=== PATIENT | female | born 1970 | race Caucasian/White ===

== ENCOUNTER → 2017-11-11 11:24 | Outpatient (CLI) | payer OTHER, SELFPAY ==
--- NOTE | 2017-11-11 11:32 | RAD_ITS ---
STUDY: X-RAY - PELVIS AND BILATERAL HIPS REASON FOR EXAM: Female, 47 years old. Pain. TECHNIQUE: Radiological exam, hip, bilateral, with pelvis when performed; 2 views COMPARISON: None. FINDINGS: There is a non-specific bowel gas pattern. Normal visualized soft tissue structures. Normal bilateral iliac wings, sacroiliac joints and visualized sacrum. Normal bilateral superior and inferior pubic rami. Normal pubic symphysis. Normal bilateral ischial tuberosities. Normal visualized right femoral head. Normal right acetabulum. Normal right hip joint. Normal visualized left femoral head. Normal left acetabulum. Normal left hip joint. RAD/Hips B/L min 2 views w/ Pelvis IMPRESSION: Normal x-ray examination of the pelvis and bilateral hips. Electronically Signed: Abraham Calvillo MD at 8:40 EDT , Service support ,
--- NOTE | 2017-11-11 11:35 | RAD_ITS ---
STUDY: X-RAY - LUMBAR SPINE REASON FOR EXAM: Female, 47 years old. Pain TECHNIQUE: 5 view(s) of the lumbar spine were obtained. COMPARISON: None FINDINGS: Normal lumbar lordosis. There is no substantial scoliosis. There is a normal alignment of the vertebrae. There is multilevel endplate spondylosis of the lumbar vertebrae. There is multi-level degenerative disc disease with multi-level disc space narrowing. Findings most pronounced at L3-L4 and L4-L5. There is no demonstrated fracture. The soft tissue structures are unremarkable. RAD/L/S Spine Min 4 Views IMPRESSION: Degenerative changes of the spine, as detailed above. Electronically Signed: Abraham Calvillo MD at 8:39 EDT , Service support ,
== END ==
PROVIDERS: Visit Provider Anesthesiology
DX: M51.16 Intervertebral disc disorders with radiculopathy, lumbar region (principal); M47.896 Other spondylosis, lumbar region; M25.552 Pain in left hip; M25.551 Pain in right hip
CPT/HCPCS: 72110; 73521

== ENCOUNTER → 2017-12-19 17:45 | Outpatient (CLI) | payer OTHER, SELFPAY ==
--- NOTE | 2017-12-19 18:15 | MRI_ITS ---
STUDY: MRI LUMBAR SPINE WITHOUT CONTRAST REASON FOR EXAM: Female, 47 years old. Radiculopathy and low back pain TECHNIQUE: Standardized fat and water weighted pulse sequences were obtained in the sagittal and axial planes. COMPARISON: None FINDINGS: T12-L1: Normal endplates. Normal disc height, hydration and morphology. Normal bilateral facet joints. Normal central canal and bilateral lateral recesses. Normal bilateral intervertebral neural foramina. Normal lumbar lordosis. There is moderate levo scoliosis. Normal conus medullaris that terminates at T12-L1 L1-2: Normal endplates. Normal disc height, hydration and morphology. Normal bilateral facet joints. Normal central canal and bilateral lateral recesses. Normal bilateral intervertebral neural foramina. L2-3: Normal endplates. Normal disc height, desiccation and minor annular bulge in association with prominent broad-based left paracentral/posterolateral disc extrusion with inferior migration of disc fragment.. Normal bilateral facet joints. Normal central canal. Moderate left lateral recess and subarticular stenosis with mild left neural foraminal encroachment. L3-4: Normal endplates. Normal disc height, desiccation and moderate annular bulge with large broad-based central disc protrusion and small right posterolateral/foraminal disc protrusion. Mild asymmetric thickening of the right ligamentum flavum.. Moderate central canal stenosis. Moderate right lateral recess and neuroforaminal encroachment and mild narrowing on the left. L4-5: Status post right laminotomy. Narrowed disc space with degenerative endplate changes. Desiccation of the disc and mild annular bulge in association with small left posterolateral/foraminal disc protrusion.. Mild facet arthropathy.. Normal central canal. Mild right lateral recess and neural foraminal encroachment with moderate stenosis on the left L5-S1: Normal endplates. Normal disc height, hydration and tiny right paracentral disc protrusion. Normal bilateral facet joints. Normal central canal and bilateral lateral recesses. Normal bilateral intervertebral neural foramina. Normal visualized sacral ala. Normal visualized paraspinous soft tissue structures. MRI/Spine Lumbar (Routine) IMPRESSION: Status post right laminotomy at L4-5. Scoliosis and degenerative changes. Spinal stenosis at L2-3 more severe on the left, L3-4 more severe on the right and L4-5 also more severe on the left. Findings as above Electronically Signed: Shiva Cunningham MD at 19:06 EDT , Service support ,
== END ==
LOC: MRI 17:49
PROVIDERS: Visit Provider Anesthesiology
DX: M54.16 Radiculopathy, lumbar region (principal); M41.86 Other forms of scoliosis, lumbar region; M48.061 Spinal stenosis, lumbar region without neurogenic claudication
CPT/HCPCS: 72148

== ENCOUNTER → 2018-03-31 08:27 | Outpatient (CLI) | payer OTHER, SELFPAY | PROVIDERS: Visit Provider Anesthesiology | PROC: 3E0S3BZ Introduction of Anesthetic Agent into Epidural Space, Percutaneous Approach (ICD-10-PCS; CPT 62282; principal; 2018-03-06 13:40) | DX: Z01.818 Encounter for other preprocedural examination (principal) ==

== ENCOUNTER 2018-05-22 11:07 | Day surgery (SDC) | payer OTHER, SELFPAY ==
[2018-05-22] VITALS (8 sets, daily range): BP systolic 93–143; BP diastolic 64–84; PULSE 62–82; RESP 14–18; TEMP 36.4–37.1; O2SAT 98–100; BMI 33.3
--- NOTE | 2018-05-22 12:00 | RAD_ITS ---
PROCEDURE: Caudal block. DATE OF EXAMINATION: May 22, 2018. INDICATION: Female, 48 years old. Chronic low back pain. FLUOROSCOPY TIME (if supplied): (0:20) minutes/seconds. 3 intraoperative views were obtained. A spinal needle is seen overlying the posterior midportion of the sacrum. RAD/Fluor Guidance for Spine Inj IMPRESSION: Intraoperative imaging provided for caudal block. Electronically Signed: Moise Cabrera MD at 14:54 EDT Tel [phone], Service support ,
[2018-05-22 12:22] LABS: Internal QC Validated? YES +Cl - CLEAR BKGD; Pregnancy, Urine Negative Negative
[2018-05-22] MEDS: Triamcinolone Acetonide 40 MG/ML Vial (12:57)
--- NOTE | 2018-05-22 13:38 | DCINST_ITS ---
- Discharge Diagnoses Current Active Problems: Lower lumbar spine pain and lumbar radiculopathy Reason(s) for Visit for Discharge Instructions: Caudal epidural steroid injection under fluoroscopy guidance and monitor conscious sedation for severe lower back pain You will use the following diet at home:: Regular Your food should be the consistency of: Regular Your liquids should be the consistency of: Regular/Thin Discharge Activity: - - Patient instructed for bed rest for 48 hours with light activity but nothing and restroom Patient instructed for 2 hours recumbency twice daily Evaluation in 2-4 weeks May shower in (days): 1 May resume sexual activity in: No Restrictions Ice area for (Minutes): 1 - Apply ice 20 minutes on 1 hour off 3 times daily for the lower back Weight Bearing Status: Weight bearing as tolerated Additional Activity Instructions:: No heavy lifting. No excessive bending or twisting. Walking 30 minutes followed by rest. Limit standing to 30 minutes. No squatting or kneeling Call your doctor if your incision/area has: Continuous Slow Oozing, Sudden Increased Bleeding, Increased Pain/ Swelling, Increased Redness, Foul Smelling Discharge, Swelling at the incision site Call your doctor if you observe: Fever of 101 or Higher, Coldness, Increased Pain, Numbness or Tingling, Inability to urinate, Inability to have a bowel movement, Using more than one pad per hour, Shortness of breath, Dizziness, Fainting spells, Swelling in the ankles, Chest pain, Prolonged hiccoughing, Increased palpitations (irregular heartbeat), Calf discomfort, Uncontrolled pain Suture Line Care: Avoid Pulling/Pushing, Avoid Pinching/Bending Change Dressing in (Days):: 1 Remove Dressing in (days):: 1 Cleanse incision/area with: Soap & Water Instructions: What Is Osteoarthritis?, Living with Osteoarthritis, Osteoarthritis Medication, Osteoarthritis: Protecting Your Joints, Osteoarthritis: Coping with Pain, Osteoarthritis: Injections or Surgery Additional Instructions: Please allow patient to rest on lower back if has severe flares up of the lower back preventing patient from standing or staying in a sitting position to relieve her flares up Allergies/Adverse Reactions: Allergies No Known Allergies Allergy (Verified 05/22/18 11:32) Medications to take at Discharge Lisinopril [Zestril] 10 mg PO DAILY 01/18/15 traZODone [Desyrel] 100 mg PO QHS 01/18/15 Escitalopram Oxalate [Lexapro] 10 mg PO DAILY 05/13/18 Gabapentin [Neurontin] 300 mg PO TIDCM 05/13/18 Hydroxyzine Pamoate 50 mg PO TID 05/13/18 Lamotrigine [Lamictal] 100 mg PO BID 05/13/18 Meloxicam [Mobic] 7.5 mg PO BID 05/13/18 Primary Care Physician: Care Physician,No Primary [Primary Care Provider] - Test Results: Test results from this visit will be discussed in further detail at your follow- up appointment, if applicable. Please Follow Up With: Kya Hernandez MD
--- NOTE | 2018-05-22 13:40 | PCM.OPRPT ---
Report of Operation Date of Procedure: 05/22/18 Pre-Operative Diagnosis: Lumbar degenerative disc disease and lumbar radiculopathy Post-Operative Diagnosis: Same Surgery/Procedure Performed:: Caudal epidural steroid injection under fluoroscopy guidance and conscious sedation Description of Surgical Findings:: Under sterile conditions. Patient placed in the prone position, pressure points were padded, patient was ready from the nursing and the anesthesia team. After identification of the side and the target area for the block under guided fluoroscopy, the entry site was marked with marking pen. I used Betadine for sterilization of the skin, sterile draping were applied. Using 25-gauge needle to infiltrate the skin with local anesthesia using preservative-free lidocaine 0.5% injected 2.5 mL at site of entry. Using guided fluoroscopy, accessed the the caudal/sacral epidural space using 22-gauge final needles under midline approach, access mostly through the sacrococcygeal ligament, accessed the site was assisted with AP and lateral fluoroscopy, followed by negative aspiration of CSF and blood. Injected contrast solution [2.5] mL under live fluoroscopy which showed good spread of the contrast to the posterior sacrum and lumbosacral epidural space to the level up [ L4-5]. Injected [5] mL of mixture of preservative-free lidocaine and Kenalog [80] mg for the procedure which showed appropriate spread in the lumbosacral epidural space. [place] was removed, pressure dressing were applied. Patient tolerated the procedure well and was taken to the recovery. Type of Anesthesia:: Local MAC, MAC Special Medications: Lidocaine/preservative-free normal saline 0.5%. Kenalog 80 mg. Betadine. Contrast solution Specimen's removed: None Estimated Blood Loss (mL): None
--- NOTE | 2018-05-22 13:51 | OP.PCM_ITS ---
Report of Operation Date of Procedure: 05/22/18 Pre-Operative Diagnosis: Lumbar degenerative disc disease and lumbar radic ulopathy Post-Operative Diagnosis: Same Surgery/Procedure Performed:: Caudal epidural steroid injection under fluoroscopy guidance and conscious sedation Description of Surgical Findings:: Under sterile conditions. Patient placed in the prone position, pressure points were padded, patient was ready from the nursing and the anesthesia team. After identification of the side and the target area for the block under guided fluoroscopy, the entry site was marked with marking pen. I used Betadine for sterilization of the skin, sterile draping were applied. Using 25-gauge needle to infiltrate the skin with local anesthesia using preservative-free lidocaine 0.5% injected 2.5 mL at site of entry. Using guided fluoroscopy, accessed the the caudal/sacral epidural space using 22-gauge final needles under midline approach, access mostly through the sacrococcygeal ligament, accessed the site was assisted with AP and lateral fluoroscopy, followed by negative aspiration of CSF and blood. Injected contrast solution [2.5] mL under live fluoroscopy which showed good spread of the contrast to the posterior sacrum and lumbosacral epidural space to the level up [ L4-5]. Injected [5] mL of mixture of preservative-free lidocaine and Kenalog [80] mg for the procedure which showed appropriate spread in the lumbosacral epidural space. [place] was removed, pressure dressing were applied. Patient tolerated the procedure well and was taken to the recovery. Type of Anesthesia:: Local MAC, MAC Special Medications: Lidocaine/preservative-free normal saline 0.5%. Kenalog 80 mg. Betadine. Contrast solution Specimen's removed: None Estimated Blood Loss (mL): None
== END 2018-05-22 13:52 ==
LOC: SDC 11:09 → AC 11:11
PROVIDERS: Anesthesiology
PROC: 3E0S3BZ Introduction of Anesthetic Agent into Epidural Space, Percutaneous Approach (ICD-10-PCS; CPT 62282; principal; 2018-05-22 11:55)
DX: M51.16 Intervertebral disc disorders with radiculopathy, lumbar region (principal); I10 Essential (primary) hypertension; F41.9 Anxiety disorder, unspecified; F32.9 Major depressive disorder, single episode, unspecified; F31.9 Bipolar disorder, unspecified; Z90.49 Acquired absence of other specified parts of digestive tract; Z79.899 Other long term (current) drug therapy; Z87.891 Personal history of nicotine dependence
CPT/HCPCS: 62323; 64483; 77003; 81025; J7120; J3490

== ENCOUNTER → 2018-12-11 13:29 | Outpatient (CLI) | payer OTHER, SELFPAY ==
[2018-05-22 11:36] VITALS: BMI 33.3
[2018-12-11 15:46] LABS: Amphetamine Urine VISTA NEGATIVE (<1000 ng/mL); Barbiturate Urine VISTA NEGATIVE (< 200 ng/mL); Benzodiazepine Urine VISTA NEGATIVE (< 200 ng/mL); Cocaine Urine VISTA NEGATIVE (< 300 ng/mL); Ecstacy Urine VISTA NEGATIVE (< 500 ng/mL); Methadone Urine VISTA NEGATIVE (< 300 ng/mL); PCP Urine VISTA NEGATIVE (< 25 ng/mL); THC Urine VISTA NEGATIVE (< 50 ng/mL); Vista UDS pH Range 5
== END ==
PROVIDERS: Referring Provider Anesthesiology; Visit Provider Anesthesiology
DX: F11.20 Opioid dependence, uncomplicated (principal)
CPT/HCPCS: 80307

== ENCOUNTER 2019-01-22 12:21 | Day surgery (SDC) | payer OTHER, SELFPAY ==
[2019-01-22 13:09] VITALS: BP 126/63; PULSE 59; RESP 16; TEMP 36.9; O2SAT 100; BMI 33.7
[2019-01-22 13:28] LABS: Internal QC Validated? YES +Cl - CLEAR BKGD; Pregnancy, Urine Negative Negative
--- NOTE | 2019-01-22 13:50 | RAD_ITS ---
PROCEDURE: Caudal block. DATE OF EXAMINATION: January 22, 2019 INDICATION: Female, 48 years old. Low back pain. FLUOROSCOPY TIME (if supplied): (0:27) minutes/seconds. 2 fluoroscopic images were obtained. The spinal needle is seen overlying the mid posterior aspect of the sacrum. RAD/Fluor Guidance for Spine Inj IMPRESSION: Intraoperative imaging provided for caudal block. Electronically Signed: Moise Cabrera, at 13:58 EDT , Service support ,
--- NOTE | 2019-01-22 14:08 | DCINST_ITS ---
- Discharge Diagnoses Current Active Problems: Lumbar degenerative disease and lumbar radiculopathy Reason(s) for Visit for Discharge Instructions: Caudal epidural steroid injection under fluoroscopy guidance You will use the following diet at home:: No restrictions Your food should be the consistency of: Regular Discharge Activity: Return to Normal Activity May shower in (days): 1 May resume sexual activity in: No Restrictions Weight Bearing Status: Weight bearing as tolerated, Full weight bearing, Partial weight bearing, Toe touch weight bearing, No weight bearing Call your doctor if your incision/area has: Continuous Slow Oozing, Sudden Increased Bleeding, Increased Pain/ Swelling, Foul Smelling Discharge, Swelling at the incision site Call your doctor if you observe: Fever of 101 or Higher, Coldness, Increased Pain, Numbness or Tingling, Calf discomfort, Uncontrolled pain Remove Dressing in (days):: 1 Cleanse incision/area with: Soap & Water Instructions: What Is Osteoarthritis?, Understanding Osteoarthritis, Osteoarthritis: Coping with Pain, Osteoarthritis Medication, Osteoarthritis: Injections or Surgery, Osteoarthritis: Protecting Your Joints, Osteoarthritis: Exercise, Osteoarthritis: Common Sites, Living with Osteoarthritis Allergies/Adverse Reactions: Allergies No Known Allergies Allergy (Verified 05/22/18 11:32) Medications to take at Discharge Lisinopril [Zestril] 10 mg PO DAILY 01/18/15 traZODone [Desyrel] 100 mg PO QHS 01/18/15 Escitalopram Oxalate [Lexapro] 10 mg PO DAILY 05/13/18 Gabapentin [Neurontin] 300 mg PO TIDCM 05/13/18 Hydroxyzine Pamoate 50 mg PO TID 05/13/18 Lamotrigine [Lamictal] 100 mg PO BID 05/13/18 Meloxicam [Mobic] 7.5 mg PO BID 05/13/18 Primary Care Physician: Sea Guevara MD [Primary Care Provider] - Test Results: Test results from this visit will be discussed in further detail at your follow- up appointment, if applicable. Please Follow Up With: Kya Hernandez MD
--- NOTE | 2019-01-22 14:08 | PCM.OPRPT ---
Problem List (1) Other intervertebral disc degeneration, lumbar region Status: Acute (2) Other intervertebral disc degeneration, lumbar region Status: Acute (3) Radiculopathy of lumbar region Status: Acute (4) Radiculopathy of lumbar region Status: Acute Report of Operation Date of Procedure: 01/22/19 Pre-Operative Diagnosis: Lumbar degenerative disc disease and lumbar radiculopathy Post-Operative Diagnosis: same Surgery/Procedure Performed:: Caudal epidural steroid injection under fluoroscopy guidance Description of Surgical Findings:: Under sterile conditions. Patient placed in the prone position, pressure points were padded, patient was ready from the nursing and the anesthesia team. After identification of the side and the target area for the block under guided fluoroscopy, accessed to the sacrococcygeal ligament through the caudal approach, the entry site was marked with marking pen. I used Betadine for sterilization of the skin, sterile draping were applied. Using 25-gauge needle to infiltrate the skin with local anesthesia using preservative-free lidocaine 0.5% injected 2.5 mL at site of entry. Using guided fluoroscopy, accessed the the posterior epidural space using 22-gauge spinal needles under midline approach through the caudal/sacrococcygeal ligament, accessed the site was assisted with lateral fluoroscopy, negative aspiration of CSF and blood. Injected contrast solution [2.5] mL under live fluoroscopy which showed good spread of the contrast to the posterior epidural space and to the targeted area of the injection at/sacrococcygeal ligament, showed good spread up to the lumbosacral epidural posterior space, performed caudal injection with injected [5] mL of mixture of preservative-free lidocaine and Kenalog [80] mg for the procedure which showed appropriate spread in the epidural space. [place] was removed, pressure dressing were applied. Patient tolerated the procedure well and was taken to the recovery. Type of Anesthesia:: Local MAC - Complications None
--- NOTE | 2019-01-22 14:11 | OP.PCM_ITS ---
Problem List (1) Other intervertebral disc degeneration, lumbar region Status: Acute (2) Other intervertebral disc degeneration, lumbar region Status: Acute (3) Radiculopathy of lumbar region Status: Acute (4) Radiculopathy of lumbar region Status: Acute Report of Operation Date of Procedure: 01/22/19 Pre-Operative Diagnosis: Lumbar degenerative disc disease and lumbar radiculopathy Post-Operative Diagnosis: same Surgery/Procedure Performed:: Caudal epidural steroid injection under flu oroscopy guidance Description of Surgical Findings:: Under sterile conditions. Patient placed in the prone position, pressure points were padded, patient was ready from the nursing and the anesthesia team. After identification of the side and the target area for the block under guided fluoroscopy, accessed to the sacrococcygeal ligament through the caudal approach, the entry site was marked with marking pen. I used Betadine for sterilization of the skin, sterile draping were applied. Using 25-gauge needle to infiltrate the skin with local anesthesia using preservative-free lidocaine 0.5% injected 2.5 mL at site of entry. Using guided fluoroscopy, accessed the the posterior epidural space using 22-gauge spinal needles under midline approach through the caudal/sacrococcygeal ligament, accessed the site was assisted with lateral fluoroscopy, negative aspiration of CSF and blood. Injected contrast solution [2.5] mL under live fluoroscopy which showed good spr ead of the contrast to the posterior epidural space and to the targeted area of the injection at/sacrococcygeal ligament, showed good spread up to the lumbosacral epidural posterior space, performed caudal injection with injected [5] mL of mixture of preservative-free lidocaine and Kenalog [80] mg for the procedure which showed appropriate spread in the epidural space. [place] was removed, pressure dressing were applied. Patient tolerated the procedure well and was taken to the recovery. Type of Anesthesia:: Local MAC - Complications None
[2019-01-22] MEDS: Triamcinolone Acetonide 40 MG/ML Vial (14:29)
[2019-01-22 14:45] VITALS: BP 126/63; BP 92/60; PULSE 68; RESP 18; TEMP 36.4; O2SAT 97
[2019-01-22 14:50] VITALS: BP 103/79; BP 126/63; PULSE 60; RESP 18; O2SAT 99
[2019-01-22 14:55] VITALS: BP 107/80; BP 126/63; PULSE 59; RESP 18; O2SAT 99
[2019-01-22 15:00] VITALS: BP 113/84; BP 126/63; PULSE 57; RESP 18; TEMP 36.7; O2SAT 99
[2019-01-22 15:15] VITALS: BP 126/63
== END 2019-01-22 15:26 | disposition home or self-care (01) ==
LOC: SDC 12:22 → AC 12:24
PROVIDERS: Anesthesiology; Family Provider Family Medicine; PCP Family Medicine; Referring Provider Anesthesiology; Visit Provider Anesthesiology
PROC: 3E0S3BZ Introduction of Anesthetic Agent into Epidural Space, Percutaneous Approach (ICD-10-PCS; CPT 62282; principal; 2019-01-22 13:45)
DX: M51.16 Intervertebral disc disorders with radiculopathy, lumbar region (principal); I10 Essential (primary) hypertension; F32.9 Major depressive disorder, single episode, unspecified; F41.9 Anxiety disorder, unspecified; Z79.899 Other long term (current) drug therapy; Z87.891 Personal history of nicotine dependence; Z98.1 Arthrodesis status
CPT/HCPCS: 62323; 64483; 77003; 81025; J7120

== ENCOUNTER → 2020-04-04 13:39 | Outpatient (CLI) | payer OTHER, SELFPAY ==
--- NOTE | 2020-04-04 14:00 | RAD_ITS ---
STUDY: X-RAY - LUMBAR SPINE REASON FOR EXAM: Female, 49 years old. LBP TECHNIQUE: 4 view(s) of the lumbar spine were obtained including flexion and extension views. COMPARISON: None FINDINGS: Normal lumbar lordosis. There is a levoscoliosis of the lumbar spine. There is a normal alignment of the vertebrae. Normal vertebral bodies and endplates. There is multi-level degenerative disc disease with multi-level disc space narrowing. Partial sacralization of the L5 transverse process. There is evidence of prior bilateral tubal ligation. RAD/L/S Spine Min 4 Views IMPRESSION: Degenerative changes of the spine, as detailed above. Mild levoscoliosis. Electronically Signed: Moise Cabrera, at 15:44 EDT , Service support ,
== END ==
PROVIDERS: PCP Family Medicine; Referring Provider Orthopaedic Surgery; Visit Provider Orthopaedic Surgery
DX: M51.36 Other intervertebral disc degeneration, lumbar region (principal); M54.16 Radiculopathy, lumbar region
CPT/HCPCS: 72110

== ENCOUNTER → 2020-04-04 14:04 | Outpatient (CLI) | payer OTHER, SELFPAY | PROVIDERS: PCP Family Medicine; Referring Provider Orthopaedic Surgery; Visit Provider Orthopaedic Surgery | DX: R69 Illness, unspecified (principal) ==

== ENCOUNTER 2020-08-07 11:10 | Inpatient (IN) | payer OTHER, SELFPAY ==
[2020-04-04 15:40] VITALS: BMI 33.3
[2020-07-24 13:26] LABS: Hematocrit 32.9 % (37-47); Hemoglobin 9.9 g/dL (12.0-15.0); Mean Corp Hgb Conc 30.1 g/dL (32-36); Mean Corpuscular Hgb 26.1 pg (27.0-32.0); Mean Corpuscular Volume 86.8 fL (81-99); Mean Platelet Vol. 9.2 fl (6.2-12.0); Platelet Count 307 K/mm3 (150-450); RBC Distribution Width CV 15.9 % (11.6-14.6); RBC Distribution Width SD 50.3 fl (35.1-43.9); Red Blood Count 3.79 M/mm3 (4.2-5.4); White Blood Count 10.7 K/mm3 (4.4-11.0)
--- NOTE | 2020-07-26 17:42 | HP.PCM_ITS ---
History and Physical Surgical History and Physical Name: ANGÉLICA ALCANTARA Age: 50 Date of : 1970 Angélica Alcantara, a 50 year old female 3 0 0 0 3, presents for Robotic assisted total laparoscopic hysterectomy bilateral salpingectomy, cystoscopy on July 27, 2020 at 11:00. -- Angélica is here for increased pain with menses, IC, and general discomfort. She thought she had UTI initially but that was negative with PCP. She had pelvic u/s that showed enlarged uterus and was referred.Consents signed. MEDICATIONS HISTORY: Current medications prescribed by our practice are: 1. ibuprofen 800 mg tablet, 1 PO TID Patient is also takin. lisinopril 10 mg tablet, 1 daily 2. trazodone 100 mg tablet, 1 q hs 3. Vistaril 25 mg capsule, prn ALLERGIES: NKDA Infections - chicken pox Illnesses - depression and chronic low back pain Accidents - no injuries of consequence Hospitalizations - Childbirth and see surgery Review of Systems: GENERAL - Denies fever, or chills SKIN - Denies skin changes EYES - Denies visual changes EARS - Denies difficulty hearing NOSE - Denies nasal congestion or bleeding MOUTH - Denies sore throat or difficulty swallowing NECK - Denies pain or swelling RESPIRATORY - Denies shortness of breath or wheezing CARDIOVASCULAR - Denies palpitations or chest pain GASTROINTESTINAL - Denies nausea, vomiting, diarrhea, constipation GENITOURINARY - trouble with bladder flow, RLQ pain, pain with IC and painful menses MUSCULOSKELETAL - Denies joint or muscle pain NEUROLOGICAL - Denies localized numbness or weakness PSYCHIATRIC - Denies depression or anxiety ENDOCRINE - Denies heat or cold intolerance, weight loss or gain HEMATO-IMMUNOLOGIC - Denies excessive bleeding with cuts SOCIAL HISTORY: Alcohol Use - past ETOH use- none since Smoking - 1 cig/day, enc to quit Diet - balanced Diet Exercise - active Seat Belt Use - always Employer - [employer] 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 Mother: Endometrial Ca- hysterectomy. Father: Heart Disease. MENSTRUAL HISTORY: LMP Known?- DefiniteAmount/Duration - 7 days, Regularity - Regular, Frequency - monthly days, LMP - 07/17/20 PAST PREGNANCIES: Total Pregnancies - 3; Full Term Pregnancies - 3; Premature - 0; Abortions, Induced - 0; Abortions, Spontaneous - 0; Ectopics - 0; Multiple Births - 0; Living Children - 3 SURGICAL HISTORY: 1. 03/17/2008 ; Ned Nguyen M.D. - 2. C/S 1995 ; - 3. C/S 1998 ; - 4. Tubal 1998 ; - 5. back surgery L4-L5 partial disk removal ; - PHYSICAL EXAM BP- 124/78 Sitting, Right arm, regular cuff Weight- 215.20295 lbs Height- 68 inch BMI:32.76 CONSTITUTIONAL - NAD, well nourished, and well developed SKIN - No rash, lesions, or ulcers HEENT - Normocephalic, PERRLA, EOMI NECK - No nodes, no nuchal rigidity and thyroid normal size and texture LYMPH NODES - Palpation of lymph nodes in neck and groins within normal limits LUNGS - CTA x2 without wheezes, crackles or rales CARDIAC - Regular rate and rhythm without rubs, murmurs, or gallops ABDOMEN - Without hepatosplenomegaly, distention, masses, rebound, or guarding; normal bowel sounds; no hernias EXTREMITIES - No edema or calf tenderness NEUROLOGICAL - Cranial nerves II-XII grossly intact PSYCHIATRIC - A and O to time, place, person, mood and affect External Genital Vagina - non-tender without lesions Urethra/Urethral Meatus - non-tender Bladder - non-tender Vagina - vaginal fay are pink and moist without loss of rugae and no evidence of atropy Cervix - without cervical motion tenderness and has normal size and features without evident lesions Uterus - 8 cm in size wide, mobile and nontender Adnexa - clear without masses or tenderness ASSESSMENT/PLAN: 1. Dysmenorrhea Dysmenorrhea, heavy regular periods. U/s at , Uterus [id number] bulbous, endometrium 9.8mm, adnexa wnl Suspect Adenomyosis. Educated on medical vs surgical options. Declines Progesterone only BC, failed NSAIDs. Elects for Robotic Hysterectomy B/L Salpingectomy Pap wnl at PCP EMB shows hyperplasia without atypia, polyp. Discussed results with pt, elects for surgery as scheduled
[2020-08-07] VITALS (16 sets, daily range): BP systolic 104–152; BP diastolic 65–86; PULSE 59–88; RESP 16–20; TEMP 35.8–36.9; O2SAT 97–100; BMI 31.6
[2020-08-07 06:21] LABS: Bedside Glucose 113 mg/dL (70-110)
[2020-08-07] MEDS: Gabapentin 600 MG Tablet PO (06:34)
[2020-08-07] MEDS: dexAMETHasone 10 MG/ML Vial 8 MG IV (06:34)
[2020-08-07] MEDS: Acetaminophen 500 MG Tablet 1000 MG PO ×4 (06:34→23:11)
[2020-08-07] MEDS: Lactated Ringers 1,000 ML 40 ML IV (06:34)
[2020-08-07] MEDS: Celecoxib 200 MG Capsule 400 MG PO (06:34)
--- NOTE | 2020-08-07 07:00 | HP.PCM_ITS ---
History and Physical Date of Admission: 08/07/20 Malorie Alcantara, a 50 year old female 3 0 0 0 3 -- Malorie with increased pain with menses, IC, and general discomfort. She also noticed flow of urine has been different. She thought she had UTI initially but that was negative with PCP. She had pelvic u/s that showed enlarged uterus and was referred here. Scheduled for RATLH/BS, cysto. No changes to her health history. Questions answered. MEDICATIONS HISTORY: Current medications prescribed by our practice are: 1. ibuprofen 800 mg tablet, 1 PO TID 2. Mobic 15 mg tablet, 1 PO QD Patient is also takin. lisinopril 10 mg tablet, 1 daily 2. trazodone 100 mg tablet, 1 q hs 3. Vistaril 25 mg capsule, prn ALLERGIES: NKDA Infections - chicken pox Illnesses - depression and chronic low back pain Accidents - no injuries of consequence Hospitalizations - Childbirth and see surgery Review of Systems: GENERAL - Denies fever, or chills SKIN - Denies skin changes EYES - Denies visual changes EARS - Denies difficulty hearing NOSE - Denies nasal congestion or bleeding MOUTH - Denies sore throat or difficulty swallowing NECK - Denies pain or swelling RESPIRATORY - Denies shortness of breath or wheezing CARDIOVASCULAR - Denies palpitations or chest pain GASTROINTESTINAL - Denies nausea, vomiting, diarrhea, constipation GENITOURINARY - trouble with bladder flow, RLQ pain, pain with IC and painful menses MUSCULOSKELETAL - Denies joint or muscle pain NEUROLOGICAL - Denies localized numbness or weakness PSYCHIATRIC - Denies depression or anxiety ENDOCRINE - Denies heat or cold intolerance, weight loss or gain HEMATO-IMMUNOLOGIC - Denies excessive bleeding with cuts SOCIAL HISTORY: Alcohol Use - past ETOH use- none since Smoking - 1 cig/day, enc to quit Diet - balanced Diet Exercise - active Seat Belt Use - always Employer - [employer] 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 Mother: Endometrial Ca- hysterectomy. Father: Heart Disease. MENSTRUAL HISTORY: LMP Known?- DefiniteAmount/Duration - 7 days, Regularity - Regular, Frequency - monthly days, LMP - 07/17/20 PAST PREGNANCIES: Total Pregnancies - 3; Full Term Pregnancies - 3; Premature - 0; Abortions, Induced - 0; Abortions, Spontaneous - 0; Ectopics - 0; Multiple Births - 0; Living Children - 3 SURGICAL HISTORY: 1. 03/17/2008 ; Ned Nguyen M.D. - 2. 08/07/2020 Robotic assisted dx laparoscopy, PALLAVI/BS, lysis of adhesions, cystoscopy ; Сергей Miranda MD - 3. C/S 1995 ; - 4. C/S 1998 ; - 5. Tubal 1998 ; - 6. back surgery L4-L5 partial disk removal ; - PHYSICAL EXAM BP- 124/78 Sitting, Right arm, regular cuff Weight- 215.30164 lbs Height- 68 inch BMI:32.76 CONSTITUTIONAL - NAD, well nourished, and well developed SKIN - No rash, lesions, or ulcers HEENT - Normocephalic, PERRLA, EOMI NECK - No nodes, no nuchal rigidity and thyroid normal size and texture LYMPH NODES - Palpation of lymph nodes in neck and groins within normal limits LUNGS - CTA x2 without wheezes, crackles or rales CARDIAC - Regular rate and rhythm without rubs, murmurs, or gallops ABDOMEN - Without hepatosplenomegaly, distention, masses, rebound, or guarding; normal bowel sounds; no hernias EXTREMITIES - No edema or calf tenderness NEUROLOGICAL - Cranial nerves II-XII grossly intact PSYCHIATRIC - A and O to time, place, person, mood and affect External Genital Vagina - non-tender without lesions Urethra/Urethral Meatus - non-tender Bladder - non-tender Vagina - vaginal fay are pink and moist without loss of rugae and no evidence of atropy Cervix - without cervical motion tenderness and has normal size and features without evident lesions Uterus - 8 cm in size wide, mobile and nontender Adnexa - clear without masses or tenderness ASSESSMENT/PLAN: 1. Encounter For Other Preprocedural Examination Dysmenorrhea, heavy regular periods. U/s at , Uterus [id number] bulbous, endometrium 9.8mm, adnexa wnl Suspect Adenomyosis. Educated on medical vs surgical options. Declines Progeterone only BC, failed NSAIDs. Elects for Robotic Hysterectomy B/L Salpingectomy Pap wnl at PCP EMB shows hyperplasia without atypia, polyp. Discussed results with pt, elects for RA TLH BS cysto
[2020-08-07] MEDS: Cefazolin 2 GM in 0.9% Normal Saline 100 ML IV (07:24)
--- NOTE | 2020-08-07 07:30 | HYST_PTH ---
PATIENT: ANGÉLICA KRUGER LOC: [facility]3 U#:[id number] AGE/SX: 50/F ROOM: MS319 RE08/07/[address]: Dr. Сергей Miranda MD : 1970 BED: 1 DIS: 08/09/2020 SPEC #: [id number] RECD: 08/07/20 12:32 STATUS: MARRY REQ #: [id number] AVINASH: 08/07/20 07:[address]: Сергей Miranda DEPT: SURGICAL PATHOLOGY RECD BY: Asuncion Black ENTERED: 08/07/20 13:41 SP TYPE: HYSTERECT OTHR DR: Kristi Tavarez, LEAD QUALITY CONTROL TECHNICIAN-C Tissues: Uterus, NOS Procedures: Surgery Specimen Level V HEADER OPERATION: ERAS, lap robotic hysterectomy, bilateral salpingectomy, cysto PRE-OP DIAGNOSIS: Dysmenorrhea TISSUE SUBMITTED: Uterus, cervix and bilateral fallopian tubes MICROSCOPIC DIAGNOSIS Uterus, hysterectomy: Cervix - minimal chronic inflammation. Endometrium - secretory endometrium. Endometrial polyp - benign endometrial polyp. Myometrium - leiomyoma and focal superficial adenomyosis. Right fallopian tube - benign paratubal cysts. Left fallopian tube - no pathologic diagnosis. AM:shravan 08/08/20 MICROSCOPIC DESCRIPTION Slides are reviewed. GROSS DESCRIPTION Received in fixative is one container labeled with the patient's name and designated uterus. The specimen consists of a uterus with detached cervical segment measuring in aggregate 12 x 8 x 5 cm and weighing 131 gm. Filshie clips are adherent to the right and left fallopian tube stubs and are intact. Present free in the container are two unoriented fallopian tubes each with an average length of 2.5 cm and average diameter of 0.7 cm and grossly unremarkable fimbriated ends. The endocervical canal measures 5 cm in length and is grossly unremarkable. The endometrial cavity measures 4.5 x 3 cm. The velvety, light ramon endometrium measures up to 0.3 cm in thickness. The posterior endometrial surface contains a light ramon polyp measuring 2.3 x 1 x 0.5 cm. The myometrium beneath the polyp is not indurated. The myometrium measures 2.5 cm in average thickness and contains a single, rubbery white nodule measuring 0.7 cm in diameter. Serial sections of the fallopian tubes does not reveal mass lesions. Sock Lining Examiner sections are submitted in ten cassettes as follows: 1 - anterior cervix, 2 - posterior cervix, 3 & 4 - anterior uterine wall, 5 - endometrial polyp, 6 & 7 - posterior uterine wall, 8 - myometrial nodule, 9??one fallopian tube, 10 - the other fallopian tube. / AM:shravan 08/07/20 TC:5 CPT: 50886
[2020-08-07] MEDS: Ropivacaine 0.5% 30 ML Vial (07:54)
[2020-08-07] MEDS: Lactated Ringers 1,000 ML 70 ML IV (09:31)
--- NOTE | 2020-08-07 11:17 | OP.PCM_ITS ---
Report of Operation Date of Procedure: 08/07/20 Pre-Operative Diagnosis: Dysmenorrhea Post-Operative Diagnosis: Dysmenorrhea Surgery/Procedure Performed:: Robotic assisted diagnostic laparoscopy, total abdominal hysterectomy, bilateral salpingectomy. Lysis of adhesions. Cystoscopy Description of Surgical Findings:: Surgeon: Сергей Miranda MD EBL: 150 cc Urine output: 300 cc IV fluids: 1800 cc Anesthesia: General Complications: None Specimen: Uterus, fallopian tubes, cervix Findings: Large amount of bladder adhesions and anterior abdominal wall adhesions. Bladder was adhesed to uterine fundus. Greater than 20 minutes of lysis of adhesions was performed. Uterus wide and long. Fallopian tubes and bilateral ovaries within normal limits. Cystoscopy postoperatively showed no pathology, bilateral ureteral jets were noted. Consent: Patient with dysmenorrhea scheduled for robotic robotic assisted total laparoscopic hysterectomy bilateral salpingectomy and cystoscopy. Patient understands the possibility of open incision. Patient also understands the risks including but not limited to visceral or vascular injury, prolonged hospitalization, blood loss need for transfusion, reoperation. Patient stated understanding wished to proceed. All questions were answered and consent was signed. Procedure: Patient was brought back to the OR where general anesthesia found be adequate. 2 g of Ancef were given for infection prophylaxis. Patient was prepared and draped in dorsolithotomy position with yellowfin stirrups. A weighted speculum is placed in the posterior aspect of the vagina. Single-tooth tenaculum is used to grasp the anterior lip of the cervix. Cervical dilators were used to dilate the cervix. Uterine manipulator was placed. Veress needle was inserted at the umbilicus and water safety test was passed. Abdomen was insufflated. Midline supraumbilical trocar was inserted. Bilateral 8 mm trochars were inserted under direct visualization. 5 mm psychiatric nursing assistant trocar was placed in the left upper quadrant. Robot was docked using fenestrated bipolar and monopolar scissors. Above findings were noted. Lysis of anterior abdominal wall adhesions then bladder adhesions was performed. Bilateral round ligaments were identified after lysis of adhesions cut and cauterized anterior flap was masked by bladder adhesions, bladder flap was began to be developed. Bilateral uterine vessels were identified cut and cauterized. Bladder was continue to be dissected. Minimal uterine manipulation was possible with bladder adhesions. Robot was undocked abdomen was deflated trochars removed under direct visualization. Pfannenstiel incision was made in the skin with a scalpel. Incision was carried down to the fascia with a scalpel fascia was excised and extended laterally. Inferior aspect of the fascia was grasped with a Karthik clamp and the underlying rectus pyramidalis muscle were dissected off sharply with Rodriges scissors. In a similar fashion the superior aspect of the fascia was grasped and the underlying rectus muscles dissected off sharply. Peritoneum was entered bluntly. Peritoneum was then extended superiorly and inferiorly with good visualization of the bladder. O'Sagar-O'Jernigan retractor was used bowel was packed. Kellys were placed at both cornua uterus was transected at its midline and handed off for pathology. Bladder dissection was continued and was dissected beyond the level of the cervix. Using Madie clamps the cardinal and uterosacral ligaments were clamped cut and suture-ligated bilaterally. Using right angle zeppelins were placed at the corners of the vagina. And the colpotomy was made with Lashell scissors. The angles were closed with Madie stitches. The vaginal cuff was closed with [id number]. Good hemostasis noted. Using Madie clamp and a [place] mesosalpinx the left lobe which was identified and the fimbria was identified cut and Ellis transfixation stitch was placed good hemostasis was noted in a similar fashion the right fallopian tube was identified to the fimbria Madie clamp at the mesosalpinx was placed and also transfixation was performed bilateral fallopian tubes removed with Metzenbaum scissors. Good hemostasis was noted. All packing was removed O'Sagar-O'Jernigan safely removed. Muscle was closed. Fascia was closed in a continuous running fashion. Skin was closed in a subcuticular fashion. Laparoscopic port sites were closed in a subcuticular fashion. Cystoscopy was performed and above findings were noted. All counts correct x2. Patient tolerated the procedure well was brought to recovery stable condition. advanced seal delivery system: Joy Manuel
--- NOTE | 2020-08-07 11:39 | DCINST_ITS ---
Discharge Diet: No Restrictions Discharge Activity: May not drive while taking narcotic pain medications., May Shower, - - No tub baths for 2 weeks May resume sexual activity in: 2 weeks Lifting Restrictions: No lifting over 25 pounds for 3 weeks Call your doctor if your incision/area has: Foul Smelling Discharge Call your doctor if you observe: Fever of 101 or Higher, Shortness of breath, Chest pain Allergies/Adverse Reactions: Allergies No Known Allergies Allergy (Verified 08/07/20 06:06) Medications to take at Discharge Lisinopril [Zestril] 10 mg PO DAILY 01/18/15 RX: traZODone [Desyrel] 100 mg PO QHS 01/18/15 Escitalopram Oxalate [Lexapro] 10 mg PO DAILY 05/13/18 Gabapentin [Neurontin] 300 mg PO TIDCM 05/13/18 Lamotrigine [Lamictal] 100 mg PO BID 05/13/18 Meloxicam [Mobic] 7.5 mg PO BID 05/13/18 RX: Hydroxyzine Pamoate 25 mg PO 4X/DAY PRN 05/13/18 RX: Oxycodone [Oxyir] 5 mg PO Q6H PRN PRN 7 Days #28 tab 08/07/20 The following prescriptions were given: RX: Oxycodone [Oxyir] 5 mg PO Q6H PRN PRN 7 Days #28 tab PRN Reason: Pain Score 6-10 Transmission Status: Received by [facility] Primary Care Physician: Kristi Tavarez NP, FELLMONGERY WORKER-C [Primary Care Provider] - Test Results: Test results from this visit will be discussed in further detail at your follow- up appointment, if applicable. Please Follow Up With: Сергей Miranda MD When: 2 weeks
[2020-08-07] MEDS: Ketorolac 30 MG/ML Syringe IV ×2 (13:02→18:59)
[2020-08-07] MEDS: 0.9% Saline Lock 10 ML Syringe IV ×2 (13:31→15:54)
[2020-08-07] MEDS: HYDROmorphone 1 MG/ML Syringe IV ×2 (13:31→15:53)
[2020-08-07] MEDS: Lactated Ringers 1,000 ML 125 ML IV ×2 (15:58→23:12)
[2020-08-07] MEDS: oxyCODONE 5 MG Tablet PO (17:47)
[2020-08-07] MEDS: Enoxaparin 40 MG/0.4 ML Syringe SC (21:09)
[2020-08-07] MEDS: Zolpidem Tartrate 5 MG Tablet 10 MG PO (22:41)
[2020-08-07] MEDS: DiphenhydrAMINE 25 MG Capsule PO (22:41)
[2020-08-08] VITALS (15 sets, daily range): BP systolic 113–156; BP diastolic 59–88; PULSE 60–80; RESP 16–18; TEMP 36.6–36.9; O2SAT 95–100
[2020-08-08] MEDS: Ketorolac 30 MG/ML Syringe IV ×4 (00:19→20:07)
[2020-08-08] MEDS: Lactated Ringers 1,000 ML 125 ML IV (06:07)
[2020-08-08] MEDS: Acetaminophen 500 MG Tablet 1000 MG PO ×3 (06:39→20:09)
[2020-08-08] MEDS: Ondansetron 4 MG/2 ML Vial IV ×2 (08:06→13:36)
--- NOTE | 2020-08-08 08:12 | PCM.PN.OB ---
Subjective: Patient resting comfortably in bed. Awoken with some nausea and minimal pain on MATTRESS PACKER. Denies chest pain, shortness of breath. States pain is improved overnight with MATTRESS PACKER and was further improved with Ambien which allowed her to relax. - Physical Exam Vitals/I&O's: Vital Signs Temp Pulse Resp BP Pulse Ox 98.2 F 70 16 124/66 H 98 08/08/20 07:10 08/08/20 07:10 08/08/20 07:10 08/08/20 07:10 08/08/20 07:29 Oxygen Flow Rate (L/min) 6 Oxygen Delivery Method Room Air Weight: 208 lb 1.862 oz Body Mass Index (BMI) 31.6 Intake and Output for Last 24 Hours 08/06/20 08/07/20 08/08/20 23:59 23:59 23:59 Intake Total 2757.17 / 2757.17 2264.58 / 2264.58 Output Total 300 / 300 1425 / 1425 Balance 2457.17 / 2457.17 839.58 / 839.58 General: Alert, Oriented x3, Cooperative, No apparent distress, Well developed, Well nourished HEENT: Atraumatic, Normocephalic Oral: Moist Mucosa Neck: Supple, No JVD, No Nodes Lungs: Clear to auscultation, Normal air movement, No rhonchi, No wheeze, No rales Cardiovascular: Regular rate, Regular Rhythm, Normal S1, Normal S2, No murmurs Abdomen: Bowel Sounds Present, Soft, Non Tender, Non-Distended, - - Laparoscopic incisions clean dry and intact. Pfannenstiel incision bandage clean dry and intact Extremities: No clubbing, No cyanosis, No edema Skin: No rashes Lymphatic: No Cervical, Supraclavicular, or Inguinal Adenopathy Neurological: Neuro grossly intact Psych/Mental Status: Normal Affect, Appropriate, Alert and oriented to time, place, person, mood and affect Laboratory Results 08/07/20 06:30: Blood Type A NEGATIVE, Antibody Screen NEGATIVE Current Medications Acetaminophen (Acetaminophen 500 Mg Tablet) 1,000 mg PO Q6 SAI Last Admin: 08/08/20 06:39 Dose: 1,000 mg Documented by: Diphenhydramine HCl (Diphenhydramine 50 Mg/Ml Syringe) 12.5 - 25 mg IV Q6H PRN PRN PRN Reason: ITCHING Diphenhydramine HCl (Diphenhydramine 25 Mg Capsule) 12.5 - 25 mg PO Q6H PRN PRN PRN Reason: Pruritis Enoxaparin Sodium (Enoxaparin 40 Mg/0.4 Ml Syringe) 40 mg SC DAILY [facility] Last Admin: 08/07/20 21:09 Dose: 40 mg Documented by: Gabapentin (Gabapentin 600 Mg Tablet) 600 mg PO TIDCM [facility] Lactated Ringer's () 1,000 mls @ 125 mls/hr IV .Q8H SAI Last Admin: 08/08/20 06:07 Dose: 125 mls/hr Documented by: Sodium Chloride () 250 mls @ 15 mls/hr IV .[id number] PRN PRN Reason: Saline Flush Sodium Chloride () 250 mls @ 15 mls/hr IV .[id number] PRN PRN Reason: Additional IVPB Infusion Ketorolac Tromethamine (Ketorolac 30 Mg/Ml Syringe) 30 mg IV Q6H [facility] Stop: 08/12/20 13:01 Last Admin: 08/08/20 07:21 Dose: 30 mg Documented by: Morphine Sulfate (Morphine Defense Attorney 1 Mg/Ml 100ml Bag) 100 mg IV UD [facility]; Protocol Last Admin: 08/07/20 20:10 Dose: 100 mg Documented by: Naloxone HCl (Naloxone 0.4 Mg/Ml Syringe) 0.02 mg IV Q1M PRN PRN Reason: RR <10 and pt unresponsive Ondansetron HCl (Ondansetron 4 Mg/2 Ml Vial) 4 mg IV Q4H PRN PRN PRN Reason: NAUSEA Last Admin: 08/08/20 08:06 Dose: 4 mg Documented by: Sodium Chloride (0.9% Saline Lock 10 Ml Syringe) 10 - 40 ml IV UD PRN PRN Reason: SALINE FLUSH Last Admin: 08/07/20 15:54 Dose: 10 ml Documented by: Trazodone HCl (Trazodone 50 Mg Tablet) 150 mg PO QHS SAI Last Admin: 08/07/20 21:31 Dose: Not Given Documented by: Zolpidem Tartrate (Zolpidem Tartrate 5 Mg Tablet) 10 mg PO QHS PRN PRN PRN Reason: SLEEP Last Admin: 08/07/20 22:41 Dose: 10 mg Documented by: Medical Necessity - Tobacco Use Smoking Status: Former smoker Assessment/Plan All Active Problems (This Medical Record has been edited. Action required.) Other intervertebral disc degeneration, lumbar region (Acute) Other intervertebral disc degeneration, lumbar region (Acute) Radiculopathy of lumbar region (Acute) Radiculopathy of lumbar region (Acute) Postoperative day 1 status post robotic assisted diagnostic laparoscopy, total abdominal hysterectomy bilateral salpingectomy, cystoscopy, lysis of adhesions. Patient seen yesterday evening with severe neuropathic pain. Dilaudid IV was not improving pain and Toradol was not helping. Started morphine MATTRESS PACKER last night along with Neurontin. Patient given Ambien to help with sleep. This morning as noted above morphine MATTRESS PACKER improved pain and Ambien improved nerves. We will continue MATTRESS PACKER this morning and consider DC this afternoon. Will DC Harden today, DC IV fluids. Continue regular diet. Goals to be up to chair today and ambulate. If patient meeting all postoperative criteria and pain is well controlled okay to discharge home today but will reevaluate this afternoon.
--- NOTE | 2020-08-08 10:55 | CASEMGMT ---
RN ADILSON Face to Face with patient for initial transition planning/care coordination assessment. RN CM introduced self and role at [facility]. Patient lying in bed, alert and oriented. Patient willing to participate in assessment and is able to answer all questions appropriately. Care providers, pharmacy, and demographics verified. Patient wishes to discharge home, denies need for home health at this time. Patient states she has no further needs or concerns at this time. CM to follow for discharge planning needs that may arise. PCP: Daysi [facility] Specialists: AUSTIN Miranda Preferred [facility]acy: [facility] Insurance: [facility] Prescription Benefit: yes Living Will/HPOA: none LNOK: Living Arrangements: patient lives with in a condo with no steps to enter the home. Patient states she is independent at home. Transportation: self, DME/HHC: Patient denies DME or previous HHC. Disposition Plan: Patient to discharge home with family support and follow-up plans in place. Alisson MIRAMONTES, RN, CM
[2020-08-08] MEDS: oxyCODONE 5 MG Tablet PO ×3 (11:00→20:20)
[2020-08-08] MEDS: Enoxaparin 40 MG/0.4 ML Syringe SC (11:23)
[2020-08-08] MEDS: Gabapentin 600 MG Tablet PO ×3 (11:23→20:11)
[2020-08-08] MEDS: DiphenhydrAMINE 50 MG/ML Syringe IV (11:25)
--- NOTE | 2020-08-08 11:56 | NURSING ---
PT SPENT 90 MINUTES UP IN CHAIR, TOLERATED WELL, HAS VOIDED QS AND AMBULATED IN ROOM, FEELS SOMEWHAT LIGHTHEADED AND IS WILLING TO DC PEGGER DOBBY LOOMS PUMP THINKING IT IS DIRECTLY LINKED TO MORPHINE PEGGER DOBBY LOOMS-DR MARCIAL UPDATED AND NEW ORDERS RECEIVED
[2020-08-08] MEDS: Morphine 4 MG/ML Syringe IV ×2 (13:36→18:11)
[2020-08-08] MEDS: 0.9% Saline Lock 10 ML Syringe IV (18:11)
[2020-08-08] MEDS: Zolpidem Tartrate 5 MG Tablet 10 MG PO (20:21)
[2020-08-08] MEDS: lamoTRIgine 100 MG Tablet PO (20:22)
[2020-08-08] MEDS: DiphenhydrAMINE 25 MG Capsule PO (20:22)
[2020-08-08] MEDS: traZODone 50 MG Tablet 150 MG PO (22:06)
--- NOTE | 2020-08-08 23:54 | PCS.PANDOC ---
PANDEMIC DOCUMENTATION INITIATED: Date: 08/08/2020 Time: 0800
[2020-08-09] MEDS: Ketorolac 30 MG/ML Syringe IV (01:14)
[2020-08-09] MEDS: Acetaminophen 500 MG Tablet 1000 MG PO ×2 (01:14→06:46)
[2020-08-09 05:43] VITALS: BP 120/68; PULSE 80; RESP 16; TEMP 36.8; O2SAT 97
[2020-08-09] MEDS: Ketorolac 10 MG Tablet PO (05:45)
[2020-08-09 08:11] VITALS: O2SAT 97
[2020-08-09 08:13] VITALS: BP 125/59; PULSE 81; RESP 16; TEMP 36.8; O2SAT 98
[2020-08-09] MEDS: Gabapentin 600 MG Tablet PO (08:27)
--- NOTE | 2020-08-09 09:20 | PCM.PN.OB ---
Subjective: No overnight complaints. Pain much improved on p.o. medications. - Physical Exam Vitals/I&O's: Vital Signs Temp Pulse Resp BP Pulse Ox 98.3 F 81 16 125/59 H 98 08/09/20 08:13 08/09/20 08:13 08/09/20 08:13 08/09/20 08:13 08/09/20 08:13 Oxygen Flow Rate (L/min) 6 Oxygen Delivery Method Room Air Weight: 208 lb 1.862 oz Body Mass Index (BMI) 31.6 Intake and Output for Last 24 Hours 08/07/20 08/08/20 08/09/20 23:59 23:59 23:59 Intake Total 2757.17 / 2757.17 3500.00 / 3500.00 Output Total 300 / 300 2024 Balance 2457.17 / 2457.17 1475.00 / 1475.00 General: Alert, Oriented x3, Cooperative, No apparent distress, Well developed, Well nourished HEENT: Atraumatic, Normocephalic Oral: Moist Mucosa Neck: Supple, No JVD, No Nodes Lungs: Clear to auscultation, Normal air movement, No rhonchi, No wheeze, No rales Cardiovascular: Regular rate, Regular Rhythm, Normal S1, Normal S2, No murmurs Abdomen: Bowel Sounds Present, Soft, Non Tender, Non-Distended, - - Laparoscopic incisions clean dry and intact. Pfannenstiel incision bandage clean dry and intact Extremities: No clubbing, No cyanosis, No edema Neurological: Neuro grossly intact Psych/Mental Status: Normal Affect, Appropriate, Alert and oriented to time, place, person, mood and affect Current Medications Acetaminophen (Acetaminophen 500 Mg Tablet) 1,000 mg PO Q6 SAI Last Admin: 08/09/20 06:46 Dose: 1,000 mg Documented by: Diphenhydramine HCl (Diphenhydramine 50 Mg/Ml Syringe) 12.5 - 25 mg IV Q6H PRN PRN PRN Reason: Itching OR NAUSEA THAT DOES NOT RESPOND TO ZOFRAN Last Admin: 08/08/20 11:25 Dose: 12.5 mg Documented by: Diphenhydramine HCl (Diphenhydramine 25 Mg Capsule) 12.5 - 25 mg PO Q6H PRN PRN PRN Reason: NAUSEA NOT RELIEVED BY ZOFRAN OR ITCHING Last Admin: 08/08/20 20:22 Dose: 25 mg Documented by: Enoxaparin Sodium (Enoxaparin 40 Mg/0.4 Ml Syringe) 40 mg SC DAILY [facility] Last Admin: 08/08/20 11:23 Dose: 40 mg Documented by: Gabapentin (Gabapentin 600 Mg Tablet) 600 mg PO TIDCM [facility] Last Admin: 08/09/20 08:27 Dose: 600 mg Documented by: Sodium Chloride () 250 mls @ 15 mls/hr IV .[id number] PRN PRN Reason: Saline Flush Sodium Chloride () 250 mls @ 15 mls/hr IV .[id number] PRN PRN Reason: Additional IVPB Infusion Ketorolac Tromethamine (Ketorolac 10 Mg Tablet) 10 mg PO Q6 [facility] Stop: 08/14/20 02:54 Last Admin: 08/09/20 05:45 Dose: 10 mg Documented by: Lamotrigine (Lamotrigine 100 Mg Tablet) 100 mg PO BID [facility] Last Admin: 08/08/20 20:22 Dose: 100 mg Documented by: Morphine Sulfate (Morphine 4 Mg/Ml Syringe) 4 mg IV Q4H PRN PRN PRN Reason: Pain Score 6-10 Last Admin: 08/08/20 18:11 Dose: 4 mg Documented by: Ondansetron HCl (Ondansetron 4 Mg/2 Ml Vial) 4 mg IV Q4H PRN PRN PRN Reason: NAUSEA Last Admin: 08/08/20 13:36 Dose: 4 mg Documented by: Oxycodone HCl (Oxycodone 5 Mg Tablet) 5 - 10 mg PO Q4H PRN PRN PRN Reason: Pain Score 1-10 Last Admin: 08/08/20 20:20 Dose: 5 mg Documented by: Sodium Chloride (0.9% Saline Lock 10 Ml Syringe) 10 - 40 ml IV UD PRN PRN Reason: SALINE FLUSH Last Admin: 08/08/20 18:11 Dose: 10 ml Documented by: Trazodone HCl (Trazodone 50 Mg Tablet) 150 mg PO QHS [facility] Last Admin: 08/08/20 22:06 Dose: 150 mg Documented by: Zolpidem Tartrate (Zolpidem Tartrate 5 Mg Tablet) 10 mg PO QHS PRN PRN PRN Reason: SLEEP Last Admin: 08/08/20 20:21 Dose: 10 mg Documented by: Medical Necessity - Tobacco Use Smoking Status: Former smoker Assessment/Plan All Active Problems (This Medical Record has been edited. Action required.) Other intervertebral disc degeneration, lumbar region (Acute) Other intervertebral disc degeneration, lumbar region (Acute) Radiculopathy of lumbar region (Acute) Radiculopathy of lumbar region (Acute) Postop day 2 pain well controlled on p.o. medications. Voiding spontaneously. Tolerating regular diet. Okay to discharge home today
--- NOTE | 2020-08-09 09:22 | PCM.DC.SUM ---
Discharge Date and Diagnosis Date of Admission: 08/07/20 Date of Discharge: 08/09/20 Hospital Course and Treatment Operations: - - Robotic assisted exploratory laparoscopy, total abdominal hysterectomy bilateral salpingectomy. Cystoscopy. Lysis of adhesions Procedures: None Summary of Care Provided: The patient is a 50 year old F [] - Physical Exam Vitals/I&O's: Vital Signs Temp Pulse Resp BP Pulse Ox 98.3 F 81 16 125/59 H 98 08/09/20 08:13 08/09/20 08:13 08/09/20 08:13 08/09/20 08:13 08/09/20 08:13 Oxygen Flow Rate (L/min) 6 Oxygen Delivery Method Room Air Weight: 208 lb 1.862 oz Body Mass Index (BMI) 31.6 Intake and Output for Last 24 Hours 08/07/20 08/08/20 08/09/20 23:59 23:59 23:59 Intake Total 2757.17 / 2757.17 3500.00 / 3500.00 Output Total 300 / 300 2024 / 2024 Balance 2457.17 / 2457.17 1475.00 / 1475.00 General: Alert, Oriented x3, Cooperative, No apparent distress, Well developed, Well nourished HEENT: Atraumatic, Normocephalic Oral: Moist Mucosa Neck: Supple, No JVD Lungs: Clear to auscultation, Normal air movement, No rhonchi, No wheeze, No rales Cardiovascular: Regular rate, Regular Rhythm, Normal S1, Normal S2, No murmurs Abdomen: Bowel Sounds Present, Soft, Non Tender, Non-Distended, - - Laparoscopic incisions clean dry and intact. Pfannenstiel incision bandage clean dry and intact Extremities: No clubbing, No cyanosis, No edema Lymphatic: No Cervical, Supraclavicular, or Inguinal Adenopathy Neurological: Neuro grossly intact Psych/Mental Status: Normal Affect, Appropriate, Alert and oriented to time, place, person, mood and affect Current Medications Acetaminophen (Acetaminophen 500 Mg Tablet) 1,000 mg PO Q6 SAI Last Admin: 08/09/20 06:46 Dose: 1,000 mg Documented by: Diphenhydramine HCl (Diphenhydramine 50 Mg/Ml Syringe) 12.5 - 25 mg IV Q6H PRN PRN PRN Reason: Itching OR NAUSEA THAT DOES NOT RESPOND TO ZOFRAN Last Admin: 08/08/20 11:25 Dose: 12.5 mg Documented by: Diphenhydramine HCl (Diphenhydramine 25 Mg Capsule) 12.5 - 25 mg PO Q6H PRN PRN PRN Reason: NAUSEA NOT RELIEVED BY ZOFRAN OR ITCHING Last Admin: 08/08/20 20:22 Dose: 25 mg Documented by: Enoxaparin Sodium (Enoxaparin 40 Mg/0.4 Ml Syringe) 40 mg SC DAILY [facility] Last Admin: 08/08/20 11:23 Dose: 40 mg Documented by: Gabapentin (Gabapentin 600 Mg Tablet) 600 mg PO TIDCM [facility] Last Admin: 08/09/20 08:27 Dose: 600 mg Documented by: Sodium Chloride () 250 mls @ 15 mls/hr IV .[id number] PRN PRN Reason: Saline Flush Sodium Chloride () 250 mls @ 15 mls/hr IV .[id number] PRN PRN Reason: Additional IVPB Infusion Ketorolac Tromethamine (Ketorolac 10 Mg Tablet) 10 mg PO Q6 [facility] Stop: 08/14/20 02:54 Last Admin: 08/09/20 05:45 Dose: 10 mg Documented by: Lamotrigine (Lamotrigine 100 Mg Tablet) 100 mg PO BID [facility] Last Admin: 08/08/20 20:22 Dose: 100 mg Documented by: Morphine Sulfate (Morphine 4 Mg/Ml Syringe) 4 mg IV Q4H PRN PRN PRN Reason: Pain Score 6-10 Last Admin: 08/08/20 18:11 Dose: 4 mg Documented by: Ondansetron HCl (Ondansetron 4 Mg/2 Ml Vial) 4 mg IV Q4H PRN PRN PRN Reason: NAUSEA Last Admin: 08/08/20 13:36 Dose: 4 mg Documented by: Oxycodone HCl (Oxycodone 5 Mg Tablet) 5 - 10 mg PO Q4H PRN PRN PRN Reason: Pain Score 1-10 Last Admin: 08/08/20 20:20 Dose: 5 mg Documented by: Sodium Chloride (0.9% Saline Lock 10 Ml Syringe) 10 - 40 ml IV UD PRN PRN Reason: SALINE FLUSH Last Admin: 08/08/20 18:11 Dose: 10 ml Documented by: Trazodone HCl (Trazodone 50 Mg Tablet) 150 mg PO QHS [facility]I Last Admin: 08/08/20 22:06 Dose: 150 mg Documented by: Zolpidem Tartrate (Zolpidem Tartrate 5 Mg Tablet) 10 mg PO QHS PRN PRN PRN Reason: SLEEP Last Admin: 08/08/20 20:21 Dose: 10 mg Documented by: Discharge Diet: No Restrictions Discharge Activity: May not drive while taking narcotic pain medications., May Shower, - - No tub baths for 2 weeks May resume sexual activity in: 2 weeks Call your doctor if your incision/area has: Foul Smelling Discharge Call your doctor if you observe: Fever of 101 or Higher, Shortness of breath, Chest pain Home Medications: Medications to take at Discharge Lisinopril [Zestril] 10 mg PO DAILY 01/18/15 RX: traZODone [Desyrel] 100 mg PO QHS 01/18/15 Escitalopram Oxalate [Lexapro] 10 mg PO DAILY 05/13/18 Gabapentin [Neurontin] 300 mg PO TIDCM 05/13/18 Lamotrigine [Lamictal] 100 mg PO BID 05/13/18 Meloxicam [Mobic] 7.5 mg PO BID 05/13/18 RX: Hydroxyzine Pamoate 25 mg PO 4X/DAY PRN 05/13/18 RX: Oxycodone [Oxyir] 5 mg PO Q6H PRN PRN 7 Days #28 tab 08/07/20 Following Prescriptions Were Given to Patient: RX: Oxycodone [Oxyir] 5 mg PO Q6H PRN PRN 7 Days #28 tab PRN Reason: Pain Score 6-10 Transmission Status: Received by [facility] Primary Care Physician: Kristi Tavarez NP, [employer] [Primary Care Provider] - Please Follow Up With: Сергей Miranda MD When: 2 weeks Medical Necessity - Tobacco Use Smoking Status: Former smoker Meaningful Use Info Meaningful Use Diagnoses (Choose all that apply): None applicable
[2020-08-09] MEDS: Enoxaparin 40 MG/0.4 ML Syringe SC (10:02)
[2020-08-09] MEDS: lamoTRIgine 100 MG Tablet PO (10:02)
== END 2020-08-09 10:42 | disposition home or self-care (01) | DRG 743 ==
LOC: MS3 13:54
PROVIDERS: Admitting Provider Obstetrics & Gynecology; PCP Nurse Practitioner Family; Referring Provider Obstetrics & Gynecology; Visit Provider Obstetrics & Gynecology
PROC: 0UT90ZZ Resection of Uterus, Open Approach (ICD-10-PCS; principal; 2020-08-07 07:10)
DX: N94.6 Dysmenorrhea, unspecified (principal); K66.0 Peritoneal adhesions (postprocedural) (postinfection); N32.89 Other specified disorders of bladder; I10 Essential (primary) hypertension; G62.9 Polyneuropathy, unspecified; F31.9 Bipolar disorder, unspecified; F41.9 Anxiety disorder, unspecified; Z98.1 Arthrodesis status; Z87.891 Personal history of nicotine dependence; Z20.828 Contact with and (suspected) exposure to other viral communicable diseases
CPT/HCPCS: 36415; 82962; 85027; 86850; 86900; 86901; 87426; 88307; 99406; C9803; J7120; A4216; J2270; J2405

== ENCOUNTER → 2021-05-29 15:59 | Outpatient (CLI) | payer OTHER, SELFPAY ==
--- NOTE | 2021-05-29 16:01 | MRI_ITS ---
STUDY: MRI LUMBAR SPINE WITHOUT CONTRAST REASON FOR EXAM: Female, 51 years old. BL Lumbar radiculopathy, low back pain TECHNIQUE: Standardized fat and water weighted pulse sequences were obtained in the sagittal and axial planes. COMPARISON: 12/19/2017 FINDINGS: T12-L1: Normal endplates. Normal disc height, hydration and morphology. Normal bilateral facet joints. Normal central canal and bilateral lateral recesses. Normal bilateral intervertebral neural foramina. Normal lumbar lordosis. There is moderate to severe scoliosis. Normal conus medullaris that terminates at T12-L1 L1-2: Normal endplates. Normal disc height, hydration and morphology. Mild thickening of ligamenta flava.. Normal central canal and bilateral lateral recesses. Normal bilateral intervertebral neural foramina. L2-3: Normal endplates. Normal disc height, desiccation and minor annular bulge with small left foraminal disc protrusion.. Normal bilateral facet joints. Normal central canal and bilateral lateral recesses. Mild left neuroforaminal encroachment. L3-4: Degenerative endplate changes. Narrowed disc space with desiccation of disc and minor annular bulge. Facet arthropathy and thickening of ligamenta flava. Normal central canal. Normal bilateral lateral recesses. Mild bilateral neuroforaminal encroachment. L4-5: Status post right laminectomy Narrowed disc space with desiccation of disc and minimal bulging of the disc with small left foraminal disc protrusion protrusion. Mild facet arthropathy and thickening of ligamenta flava.. Normal central canal and bilateral lateral recesses. Mild right neuroforaminal encroachment and moderate left neuroforaminal stenosis. L5-S1: Normal endplates. Normal disc height, hydration and tiny right paracentral disc protrusion.. Mild facet arthropathy. Normal central canal and bilateral lateral recesses. Normal bilateral intervertebral neural foramina. Normal visualized sacral ala. Normal visualized paraspinous soft tissue structures. There is interval improvement in the disc disease at L3-4 and L4-5 since prior exam MRI/Spine Lumbar (Routine) IMPRESSION: Scoliosis and degenerative changes.. Multilevel spinal stenosis secondary to disc disease and facet arthropathy most severe at L3-4 and L4-5 greater on the left. Findings as above Electronically Signed: Shiva Cunningham MD at 17:21 EDT , Service support ,
== END ==
PROVIDERS: PCP Nurse Practitioner Family; Visit Provider Psychiatry & Neurology Neurology
DX: M54.16 Radiculopathy, lumbar region (principal); M54.50 Low back pain, unspecified
CPT/HCPCS: 72148

== ENCOUNTER → 2021-06-14 12:33 | Outpatient (CLI) | payer OTHER, SELFPAY ==
[2021-06-14 13:18] LABS: Hematocrit 37.6 % (37-47); Hemoglobin 12.1 g/dL (12.0-15.0); Mean Corp Hgb Conc 32.2 g/dL (32-36); Mean Corpuscular Hgb 28.8 pg (27.0-32.0); Mean Corpuscular Volume 89.5 fL (81-99); Mean Platelet Vol. 8.5 fl (6.2-12.0); Platelet Count 311 K/mm3 (150-450); RBC Distribution Width CV 15.9 % (11.6-14.6); RBC Distribution Width SD 52.3 fl (35.1-43.9); White Blood Count 7.2 K/mm3 (4.4-11.0)
[2021-06-14 14:02] LABS: Vitamin B12 414 pg/mL (211-911)
[2021-06-14 14:19] LABS: ALB/GLOB Ratio 0.9 RATIO (0.9-2.4); AST(SGOT) 15 U/L (15-37); Alanine Aminotransfer ALT/SGPT 15 U/L (13-56); Albumin, Serum 3.4 g/dL (3.2-5.0); Alkaline Phosphatase 69 U/L (45-117); Anion Gap 4 (5-15); BUN 9 mg/dL (7-18); BUN/Creat Ratio 12.7 RATIO (10-20); Calcium,Total 8.9 mg/dL (8.5-10.1); Chloride 107 mmol/L (98-107); Creatinine, Serum 0.71 mg/dL (0.55-1.02); EST Glomerular Filtration Rate 93 mL/min (>60); Est Glom Filt Rate - Afr Amer 112 mL/min (>60); Globulin 3.8 g/dL (2.2-4.2); Glucose 103 mg/dL (74-106); Potassium 4.1 mmol/L (3.5-5.1); Protein, Total 7.2 g/dL (6.4-8.2); Sodium Level 140 mmol/L (136-145)
[2021-06-18 21:06] LABS: Free Kappa Light Chains 14.7 mg/L (3.3-19.4); Free Lambda Light Chains 8.6 mg/L (5.7-26.3)
[2021-06-18 22:09] LABS: Lamotrigine (Lamictal) Level 7.2 ug/mL (2.0-20.0)
== END ==
PROVIDERS: PCP Nurse Practitioner Family; Referring Provider Psychiatry & Neurology Neurology; Visit Provider Psychiatry & Neurology Neurology
DX: G62.9 Polyneuropathy, unspecified (principal); F31.9 Bipolar disorder, unspecified
CPT/HCPCS: 36415; 80053; 82140; 82542; 82607; 82746; 83883; 84443; 85027

== ENCOUNTER → 2021-06-27 12:31 | Outpatient (CLI) | payer OTHER, SELFPAY ==
--- NOTE | 2021-06-27 15:56 | NEURO ---
NCS and/or EMG Patient Report Ordering Doctor: Seth yRan DATE OF SERVICE: 06/27/21 Malorie presents for electrodiagnostic testing of the lower limbs. She reports pain radiating from the back into both lower limbs with numbness and tingling. Electrodiagnostic findings: Right peroneal motor nerve demonstrates normal distal latency, amplitude and conduction velocity . Left peroneal motor response is within normal limits. Normal tibial motor response bilaterally. Absent right foot superficial peroneal response. Prolonged sural latency bilaterally. Prolonged H reflex bilaterally. Right peroneal F wave could not be obtained. On needle EMG, muscles tested in the lower limbs showed no evidence of denervation with normal motor unit action potentials. No denervation noted in lumbar paraspinals Electrodiagnostic assessment: This is an abnormal study in the lower limbs 1. Electrodiagnostic findings suggestive of peripheral neuropathy with primarily sensory nerve involvement. 2. No electrodiagnostic evidence is noted for lumbosacral radiculopathy.
== END ==
PROVIDERS: PCP Nurse Practitioner Family; Referring Provider Psychiatry & Neurology Neurology; Visit Provider Psychiatry & Neurology Neurology
DX: G62.9 Polyneuropathy, unspecified (principal); M54.16 Radiculopathy, lumbar region
CPT/HCPCS: 95886; 95913